=== PATIENT | female | born 1990 | race Caucasian/White ===

== ENCOUNTER 2020-12-01 21:00 | Emergency (ER) | payer SELFPAY ==
[2020-12-01] MEDS ORDERED: Bupivacaine HCl 0.5%/Epinephrine 1:200,000/PF 30 ml Vial ONE (21:32)
[2020-12-01] MEDS ORDERED: Cephalexin 250 MG CAP ONE (22:05)
[2020-12-01] MEDS ORDERED: Ondansetron ODT 4 MG TAB ONE (22:05)
[2020-12-01] MEDS ORDERED: HYDROcodone/Acetaminophen 5/325 mg Tablet ONE (22:05)
== END 2020-12-01 22:17 | disposition home or self-care (01) ==
LOC: BURERS 21:00
DX: K04.7 Periapical abscess without sinus (principal); D50.9 Iron deficiency anemia, unspecified; F17.210 Nicotine dependence, cigarettes, uncomplicated
CPT/HCPCS: 41800; Q0162

== ENCOUNTER 2022-04-18 17:09 | Emergency (ER) | payer SELFPAY ==
[2022-04-18] MEDS ORDERED: Naproxen 500 MG TAB ONE (18:41)
== END 2022-04-18 19:54 | disposition home or self-care (01) ==
LOC: BURERS 17:09
DX: S01.01XA Laceration without foreign body of scalp, initial encounter (principal); S50.01XA Contusion of right elbow, initial encounter; S30.0XXA Contusion of lower back and pelvis, initial encounter; F17.290 Nicotine dependence, other tobacco product, uncomplicated; Y04.0XXA Assault by unarmed brawl or fight, initial encounter
CPT/HCPCS: 12001; 70450; 70486; 72170; 72220